=== PATIENT | male | born 1945 | race Two or more races ===

== ENCOUNTER → 2018-03-29 | Outpatient (CLI) | payer MEDICARE ==
[~2018-03-29] MED LIST: OMNIPAQUE 350 MG/ML, 100ML BOTTLE ONE
== END | disposition home or self-care (01) ==
LOC: CFH 14:13
PROVIDERS: ATTEND Surgery
DX: I71.02 Dissection of abdominal aorta (principal); I74.5 Embolism and thrombosis of iliac artery; I77.1 Stricture of artery; J84.10 Pulmonary fibrosis, unspecified; K57.30 Diverticulosis of large intestine without perforation or abscess without bleeding; K40.90 Unilateral inguinal hernia, without obstruction or gangrene, not specified as recurrent
CPT/HCPCS: 71275; 74174; Q9967

== ENCOUNTER → 2018-05-25 | Outpatient (CLI) | payer MEDICARE ==
[~2018-05-25] MED LIST changes: +ATOR-2 PO; +ENAL20TA PO; +METF500T17 PO; -OMNIPAQUE 350 MG/ML, 100ML BOTTLE ONE
[2018-05-25 13:15] LABS: BASOPHILS # (AUTO) 0.03 x10^3/uL (0-0.1); BASOPHILS % (AUTO) 0 % (0-1); EOSINOPHILS # (AUTO) 0.15 x10^3/uL (0-0.4); EOSINOPHILS % (AUTO) 2 % (1-7); LYMPHOCYTES # (AUTO) 1.74 x10^3/uL (1-3.4); LYMPHOCYTES % (AUTO) 23 % (22-44); MD NO; MEAN CORPUSCULAR HEMOGLOBIN 29.7 pg (27.5-34.5); MEAN CORPUSCULAR HGB CONC 33.9 g/dL (33.2-36.2); MEAN CORPUSCULAR VOLUME 87.6 fL (81-97); MEAN PLATELET VOLUME 8.9 fL (7.4-10.4); MONOCYTES # (AUTO) 0.43 x10^3/uL (0.2-0.8); MONOCYTES % (AUTO) 6 % (2-9); NEUTROPHILS # (AUTO) 5.12 x10^3/uL (1.8-6.8); NEUTROPHILS % (AUTO) 69 % (42-75); PLATELET COUNT 209 x10^3/uL (130-400); RED BLOOD COUNT 5.16 x10^6/uL (4.38-5.82); RED CELL DISTRIBUTION WIDTH 13.4 % (9.4-14.8)
[2018-05-25 13:19] LABS: PROTHROMBIN TIME 10.3 Seconds (9.6-11.5)
[2018-05-25 13:23] LABS: ALANINE AMINOTRANSFERASE 37 U/L (12-78); ALBUMIN 3.7 g/dL (3.4-5.0); ANION GAP 5 mmol/L (5-15); CALCIUM 9.1 mg/dL (8.5-10.1); CHLORIDE 105 mmol/L (98-107); CREATININE 1.15 mg/dL (0.7-1.3)
[2018-05-25 13:26] LABS: ALKALINE PHOSPHATASE 65 U/L (45-117); BILIRUBIN,TOTAL 0.7 mg/dL (0.2-1.0); TOTAL PROTEIN 7.7 g/dL (6.4-8.2)
== END | disposition home or self-care (01) ==
LOC: STAR 12:01
PROVIDERS: ATTEND Neurological Surgery
DX: Z01.818 Encounter for other preprocedural examination (principal); M48.061 Spinal stenosis, lumbar region without neurogenic claudication
CPT/HCPCS: 36415; 71046; 80053; 85025; 85610; 85730; 93005

== ENCOUNTER → 2018-05-28 | Outpatient (CLI) | payer MEDICARE ==
[~2018-05-28] MED LIST changes: +CEPH-368 PO; +METH750T87 PO; +OXYC-302 PO
[2018-05-28 10:51] LABS: MICROSCOPIC NOT IND
[2018-05-28 10:52] LABS: CULTURE INDICATED? NO
== END | disposition home or self-care (01) ==
LOC: STAR 10:26
PROVIDERS: ATTEND Neurological Surgery
DX: Z01.818 Encounter for other preprocedural examination (principal); M48.061 Spinal stenosis, lumbar region without neurogenic claudication
CPT/HCPCS: 81003

== ENCOUNTER 2018-05-31 06:40 | Inpatient (IN) | payer MEDICARE ==
[~2018-05-31] VITALS: Ht 172.7 cm; Wt 91.4 kg
[~2018-05-31 06:40] MED LIST changes: +BACITRACIN 50,000 UNIT ONE; +BUPIVACAINE 0.25% ONE; +BUPIVACAINE/PF 0.5% ONE; -CEPH-368 PO; +EPINEPHRINE 1 MG/ML, 1ML ONE; -METH750T87 PO; -OXYC-302 PO
[2018-05-31] MEDS ORDERED: LACTATED RINGERS 1,000 ML IV SCH (07:15)
[2018-05-31] MEDS ORDERED: GABAPENTIN 300 MG CAPSULE PO ONE (07:30)
[2018-05-31] MEDS ORDERED: ONDANSETRON ODT 8 MG PO ONE (07:30)
[2018-05-31] MEDS ORDERED: ACETAMINOPHEN 500 MG TABLET PO ONE (07:30)
[2018-05-31 07:32] VITALS: BP 131/73
[2018-05-31] MEDS ORDERED: FENTANYL PF 100 MCG/2ML ONE ×3 (08:08→10:45)
[2018-05-31] MEDS ORDERED: SUCCINYLCHOLINE 20 MG/ML, 10ML ONE (08:08)
[2018-05-31] MEDS ORDERED: PROPOFOL 10 MG/ML, 20ML ONE (08:08)
[2018-05-31] MEDS ORDERED: MIDAZOLAM 1 MG/ML, 2ML ONE (08:08)
[2018-05-31] MEDS ORDERED: DEXAMETHASONE 4 MG/ML, 1ML ONE ×2 (08:09)
[2018-05-31] MEDS ORDERED: PROPOFOL 50 ML ONE (08:18)
[2018-05-31] MEDS ORDERED: hydrALAzine 20 MG/ML, 1ML IV PRN (09:00)
[2018-05-31] MEDS ORDERED: LABETALOL 5MG/ML, 20ML IV PRN ×2 (09:00→13:30)
[2018-05-31] MEDS ORDERED: EPHEDRINE 50 MG/ML, 1ML IVPush PRN ×2 (09:00→11:30)
[2018-05-31] MEDS ORDERED: METOPROLOL 1 MG/ML, 5ML IV PRN (09:00)
[2018-05-31] MEDS ORDERED: LORazepam 2 MG/ML, 1ML IVPush PRN (09:00)
[2018-05-31] MEDS ORDERED: FENTANYL PF 100 MCG/2ML IV PRN (09:00)
[2018-05-31] MEDS ORDERED: HYDROmorphone 1 MG/ML, 1ML IV PRN (09:00)
[2018-05-31] MEDS ORDERED: ALBUTEROL/IPRATROPIUM 2.5MG/0.5MG, 3 ML NPPB PRN (09:00)
[2018-05-31] MEDS ORDERED: MORPHINE SULFATE 4 MG/ML, 1ML IVPush PRN (09:00)
[2018-05-31] MEDS ORDERED: PROCHLORPERAZINE 5 MG/ML, 2ML IV PRN (09:00)
[2018-05-31] MEDS ORDERED: OXYcodone 5 MG/5 ML ORAL.SOL UDC PO PRN (09:00)
[2018-05-31] MEDS ORDERED: MEPERIDINE/PF 25MG/0.5ML IVPush PRN (09:00)
[2018-05-31] MEDS ORDERED: MIDAZOLAM 1 MG/ML, 2ML IV PRN (09:00)
[2018-05-31] MEDS ORDERED: EPHEDRINE 50 MG/ML, 1ML ONE ×2 (09:49→11:25)
[2018-05-31] MEDS ORDERED: PHENYLEPHRINE 10 MG/ML ONE (09:49)
[2018-05-31] MEDS ORDERED: ROCURONIUM 10 MG/ML,10ML ONE (09:49)
[2018-05-31] MEDS ORDERED: CEFAZOLIN 1,000 MG ONE (09:49)
[2018-05-31] MEDS ORDERED: BUPIVACAINE/PF 0.25% EPIDPUSH ONE (10:50)
[2018-05-31] MEDS ORDERED: FENTANYL PF 100 MCG/2ML EPIDPUSH ONE (10:51)
[2018-05-31] MEDS ORDERED: OXYcodone 5 MG/5 ML ORAL.SOL UDC ONE (12:01)
[2018-05-31] MEDS ORDERED: HYDROcodone/APAP 10/325 MG TABLET PO PRN (13:30)
[2018-05-31] MEDS ORDERED: MAGNESIUM HYDROXIDE 8%, 30ML UDC PO PRN (13:30)
[2018-05-31] MEDS ORDERED: CEPHALEXIN 500 MG CAPSULE PO PRN (13:30)
[2018-05-31] MEDS ORDERED: ONDANSETRON 2MG/ML, 2ML IV PRN (13:30)
[2018-05-31] MEDS ORDERED: METHOCARBAMOL 750 MG TABLET PO PRN (13:30)
[2018-05-31] MEDS ORDERED: PROMETHAZINE 25 MG/ML, 1ML IM PRN (13:30)
[2018-05-31] MEDS ORDERED: morphine SULFATE 10 MG/ML, 1ML IV PRN (13:30)
[2018-05-31] MEDS ORDERED: DIPHENHYDRAMINE 50 MG CAPSULE PO PRN (13:30)
[2018-05-31] MEDS ORDERED: BISACODYL 10 MG SUPP PR PRN (13:30)
[2018-05-31] MEDS: NS + 20MEQ KCL 1,000 ML IV SCH (14:06)
[2018-05-31 14:07] VITALS: BP 125/60
[2018-05-31] MEDS: CEFAZOLIN PMX 1GM/50ML 50 ML IVPB SCH ×2 (15:51→23:41)
[2018-05-31] MEDS: INSULIN REGULAR 100 UNITS/ML, 3ML VIAL SQ-INSULIN SCH ×2 (16:00→20:52)
[2018-05-31] MEDS: metFORMIN 500 MG TABLET PO SCH (16:56)
[2018-05-31 18:44] VITALS: BP 114/60
[2018-05-31] MEDS: ENALAPRIL 20MG TABLET PO SCH (20:51)
[2018-05-31] MEDS: ATORVASTATIN 80 MG TABLET PO SCH (20:52)
[2018-05-31] MEDS ORDERED: ZOLPIDEM 5MG TABLET PO PRN (21:00)
[2018-05-31] MEDS: OXYcodone/APAP 5/325MG TABLET PO PRN (22:19)
[2018-06-01] MEDS: NS + 20MEQ KCL 1,000 ML IV SCH ×3 (02:00→22:31)
[2018-06-01] MEDS: OXYcodone/APAP 5/325MG TABLET PO PRN ×4 (02:58→20:37)
[2018-06-01 03:13] VITALS: BP 108/62
[2018-06-01] MEDS: INSULIN REGULAR 100 UNITS/ML, 3ML VIAL SQ-INSULIN SCH ×4 (07:00→20:26)
[2018-06-01 07:33] VITALS: BP 114/63
[2018-06-01] MEDS: metFORMIN 500 MG TABLET PO SCH ×2 (08:07→16:42)
[2018-06-01] MEDS: ENALAPRIL 20MG TABLET PO SCH ×3 (08:07→20:34)
[2018-06-01] MEDS: SENNA/DOCUSATE TABLET PO SCH ×2 (08:07→08:40)
[2018-06-01] MEDS: CEFAZOLIN PMX 1GM/50ML 50 ML IVPB SCH ×2 (08:39→16:43)
[2018-06-01 12:21] VITALS: BP 116/61
[2018-06-01 20:29] VITALS: BP 115/59
[2018-06-01] MEDS: ATORVASTATIN 80 MG TABLET PO SCH (20:34)
[2018-06-02 00:35] VITALS: BP 104/56
[2018-06-02] MEDS: CEFAZOLIN PMX 1GM/50ML 50 ML IVPB SCH (00:41)
[2018-06-02] MEDS: OXYcodone/APAP 5/325MG TABLET PO PRN ×2 (04:51→10:40)
[2018-06-02] MEDS: INSULIN REGULAR 100 UNITS/ML, 3ML VIAL SQ-INSULIN SCH (07:00)
[2018-06-02 08:17] VITALS: BP 105/63
[2018-06-02] MEDS: SENNA/DOCUSATE TABLET PO SCH (08:23)
[2018-06-02] MEDS: metFORMIN 500 MG TABLET PO SCH (08:23)
[2018-06-02] MEDS: ENALAPRIL 20MG TABLET PO SCH (09:00)
[2018-06-02] MEDS ORDERED: METH750T87 PO (10:17)
[2018-06-02] MEDS ORDERED: OXYC-302 PO (10:17)
[2018-06-02] MEDS ORDERED: CEPH-368 PO (10:18)
[2018-06-02] MEDS ORDERED: CEPHALEXIN 500 MG CAPSULE PO SCH (11:00)
== END 2018-06-02 11:17 | disposition home or self-care (01) | DRG 516 ==
LOC: OUT 06:40 → 4NOR 12:39 → OUT 12:43
PROVIDERS: ADMIT Neurological Surgery; ATTEND Neurological Surgery
PROC: 4A11X4G Monitoring of Peripheral Nervous Electrical Activity, Intraoperative, External Approach (ICD-10-PCS; 2018-05-31)
PROC: 01NB0ZZ Release Lumbar Nerve, Open Approach (ICD-10-PCS; principal; 2018-05-31 09:30)
DX: M48.062 Spinal stenosis, lumbar region with neurogenic claudication (principal); G95.20 Unspecified cord compression; M54.16 Radiculopathy, lumbar region; I10 Essential (primary) hypertension; I71.9 Aortic aneurysm of unspecified site, without rupture; G89.29 Other chronic pain; Z79.2 Long term (current) use of antibiotics; Z79.899 Other long term (current) drug therapy
CPT/HCPCS: 72100; 82962; G0378; J0171; J0690; J1100; J2250; J2704; J3010; J3480; J3490; Q0162; J0330; J2370; J7120

== ENCOUNTER 2019-09-11 11:07 | Day surgery (SDC) | payer MEDICARE ==
[2019-09-10 11:39] LABS: BASOPHILS # (AUTO) 0.03 x10^3/uL (0-0.1); BASOPHILS % (AUTO) 1 % (0-1); EOSINOPHILS # (AUTO) 0.21 x10^3/uL (0-0.4); EOSINOPHILS % (AUTO) 3 % (1-7); LYMPHOCYTES # (AUTO) 1.92 x10^3/uL (1-3.4); LYMPHOCYTES % (AUTO) 29 % (22-44); MD NO; MEAN CORPUSCULAR HEMOGLOBIN 29.2 pg (27.5-34.5); MEAN CORPUSCULAR HGB CONC 33.4 g/dL (33.2-36.2); MEAN CORPUSCULAR VOLUME 87.5 fL (81-97); MEAN PLATELET VOLUME 8.8 fL (7.4-10.4); MONOCYTES # (AUTO) 0.47 x10^3/uL (0.2-0.8); MONOCYTES % (AUTO) 7 % (2-9); NEUTROPHILS # (AUTO) 4.05 x10^3/uL (1.8-6.8); NEUTROPHILS % (AUTO) 61 % (42-75); PLATELET COUNT 204 x10^3/uL (130-400); RED BLOOD COUNT 5.07 x10^6/uL (4.38-5.82); RED CELL DISTRIBUTION WIDTH 13.3 % (9.4-14.8)
[2019-09-10 11:45] LABS: MICROSCOPIC NOT IND
[2019-09-10 11:46] LABS: ALANINE AMINOTRANSFERASE 28 U/L (12-78); ALBUMIN 3.8 g/dL (3.4-5.0); ANION GAP 8 mmol/L (5-15); CHLORIDE 108 mmol/L (98-107)
[2019-09-10 11:48] LABS: ALKALINE PHOSPHATASE 58 U/L (45-117); BILIRUBIN,TOTAL 0.6 mg/dL (0.2-1.0); TOTAL PROTEIN 7.1 g/dL (6.4-8.2)
[~2019-09-11] VITALS: Ht 172.7 cm; Wt 87.0 kg
[~2019-09-11 11:07] MED LIST changes: -BACITRACIN 50,000 UNIT ONE; -BUPIVACAINE 0.25% ONE; -BUPIVACAINE/PF 0.5% ONE; +CEPH-368 PO; -EPINEPHRINE 1 MG/ML, 1ML ONE; +METH750T87 PO; +OXYC-302 PO
[2019-09-11] MEDS ORDERED: FENTANYL PF 250 MCG/5ML ONE (11:42)
[2019-09-11] MEDS ORDERED: MIDAZOLAM 1 MG/ML, 2ML ONE (11:42)
[2019-09-11 11:47] VITALS: BP 163/78
[2019-09-11] MEDS ORDERED: LACTATED RINGERS 1,000 ML IV SCH (11:51)
[2019-09-11] MEDS ORDERED: LIDOCAINE 1%, 20ML ONE (11:57)
[2019-09-11] MEDS ORDERED: BUPIVACAINE/PF 0.5% ONE (11:57)
[2019-09-11] MEDS ORDERED: ACETAMINOPHEN 500 MG TABLET PO ONE (12:00)
[2019-09-11] MEDS ORDERED: GABAPENTIN 300 MG CAPSULE PO ONE (12:00)
[2019-09-11] MEDS ORDERED: FAMOTIDINE 20 MG TABLET PO ONE (12:00)
[2019-09-11] MEDS ORDERED: CEFAZOLIN 1,000 MG ONE ×2 (12:03→12:12)
[2019-09-11] MEDS ORDERED: DEXAMETHASONE 4 MG/ML, 1ML ONE (12:11)
[2019-09-11] MEDS ORDERED: PROPOFOL 10 MG/ML, 20ML ONE (12:14)
[2019-09-11] MEDS ORDERED: OXYcodone 5 MG/5 ML ORAL.SOL UDC PO PRN (12:30)
[2019-09-11] MEDS ORDERED: PROMETHAZINE 25 MG/ML, 1ML IV PRN (12:30)
[2019-09-11] MEDS ORDERED: ONDANSETRON 2MG/ML, 2ML IV PRN (12:30)
[2019-09-11] MEDS ORDERED: LABETALOL 5MG/ML, 20ML IV PRN (12:30)
[2019-09-11] MEDS ORDERED: HYDROmorphone 1 MG/ML, 1ML INJ IVPush PRN (12:30)
[2019-09-11] MEDS ORDERED: FENTANYL PF 100 MCG/2ML IV PRN (12:30)
[2019-09-11] MEDS ORDERED: hydrALAzine 20 MG/ML, 1ML IV PRN (12:30)
[2019-09-11] MEDS ORDERED: BUPIVACAINE/PF-EPI 0.25% 1:200K INFIL ONE (12:44)
[2019-09-11] MEDS ORDERED: LIDOCAINE 1%, 20ML INFIL ONE (12:45)
[2019-09-11] MEDS ORDERED: ONDANSETRON 2MG/ML, 2ML ONE (12:52)
[2019-09-11] MEDS ORDERED: metFORMIN 500 MG TABLET PO SCH (21:00)
[2019-09-11] MEDS ORDERED: ATORVASTATIN 80 MG TABLET PO SCH (21:00)
[2019-09-11] MEDS ORDERED: ENALAPRIL 20MG TABLET PO SCH (21:00)
== END 2019-09-11 16:30 | disposition home or self-care (01) ==
LOC: OUT 11:07
PROVIDERS: ATTEND Urology
DX: N43.3 Hydrocele, unspecified (principal); I10 Essential (primary) hypertension; E11.9 Type 2 diabetes mellitus without complications; Z79.84 Long term (current) use of oral hypoglycemic drugs; Z79.899 Other long term (current) drug therapy
CPT/HCPCS: 36415; 55041; 80053; 81003; 82962; 85025; 93005; J0690; J1100; J2250; J2405; J2704; J3010; J7120

== ENCOUNTER → 2020-03-26 | Outpatient (CLI) | payer MEDICARE ==
[~2020-03-26] MED LIST changes: +CINN500C2 PO; +turmeric PO
[2020-03-26 11:10] LABS: BASOPHILS # (AUTO) 0.03 x10^3/uL (0-0.1); BASOPHILS % (AUTO) 0 % (0-1); EOSINOPHILS # (AUTO) 0.22 x10^3/uL (0-0.4); EOSINOPHILS % (AUTO) 3 % (1-7); LYMPHOCYTES # (AUTO) 1.91 x10^3/uL (1-3.4); LYMPHOCYTES % (AUTO) 27 % (22-44); MD NO; MEAN CORPUSCULAR HEMOGLOBIN 28.9 pg (27.5-34.5); MEAN CORPUSCULAR HGB CONC 32.7 g/dL (33.2-36.2); MEAN CORPUSCULAR VOLUME 88.3 fL (81-97); MEAN PLATELET VOLUME 8.8 fL (7.4-10.4); MONOCYTES # (AUTO) 0.52 x10^3/uL (0.2-0.8); MONOCYTES % (AUTO) 7 % (2-9); NEUTROPHILS # (AUTO) 4.43 x10^3/uL (1.8-6.8); NEUTROPHILS % (AUTO) 62 % (42-75); PLATELET COUNT 195 x10^3/uL (130-400); RED BLOOD COUNT 5.15 x10^6/uL (4.38-5.82)
[2020-03-26 11:23] LABS: ALBUMIN 3.6 g/dL (3.4-5.0); ANION GAP 6 mmol/L (5-15); CALCIUM 8.7 mg/dL (8.5-10.1); CHLORIDE 108 mmol/L (98-107)
[2020-03-26 11:27] LABS: MICROSCOPIC NOT IND
[2020-03-26 11:28] LABS: ALANINE AMINOTRANSFERASE 31 U/L (12-78); ALKALINE PHOSPHATASE 56 U/L (45-117); BILIRUBIN,TOTAL 0.6 mg/dL (0.2-1.0); CREATININE 1.03 mg/dL (0.7-1.3)
== END | disposition home or self-care (01) ==
LOC: STAR 09:46
PROVIDERS: ATTEND Orthopaedic Surgery
DX: Z01.818 Encounter for other preprocedural examination (principal); Z20.828 Contact with and (suspected) exposure to other viral communicable diseases; M17.11 Unilateral primary osteoarthritis, right knee
CPT/HCPCS: 36415; 80053; 81003; 85025; 87081; 87635; 87806; 93005; G0475

== ENCOUNTER 2020-03-30 06:07 | Observation (INO) | payer MEDICARE ==
[~2020-03-30] VITALS: Ht 170.2 cm; Wt 92.7 kg
[~2020-03-30 06:07] MED LIST changes: -ENAL20TA PO; +ENAL20TA9 PO
[2020-03-30] MEDS ORDERED: CHLORHEXIDINE 15 ML UDC MM STA (06:18)
[2020-03-30] MEDS ORDERED: LACTATED RINGERS 1,000 ML IV SCH (06:19)
[2020-03-30] MEDS ORDERED: VANCOMYCIN PMX 1GM/200ML 200 ML IV ONE (06:30)
[2020-03-30] MEDS ORDERED: FENTANYL PF 250 MCG/5ML ONE ×2 (06:36→08:10)
[2020-03-30] MEDS ORDERED: morphine SULFATE/PF 1 MG/ML, 10ML ONE (06:42)
[2020-03-30] MEDS ORDERED: ROPIvacaine/PF 0.2%, 20 ML ONE ×2 (06:42→07:01)
[2020-03-30] MEDS ORDERED: SODIUM CHLORIDE 0.9% 50 ML ONE (06:42)
[2020-03-30] MEDS ORDERED: TRANEXAMIC ACID 100 MG/ML, 10ML ONE (06:42)
[2020-03-30] MEDS ORDERED: KETOROLAC 60 MG/2 ML ONE (06:42)
[2020-03-30] MEDS ORDERED: EPINEPHRINE 1 MG/ML, 1ML ONE (06:43)
[2020-03-30] MEDS ORDERED: PHENYLEPHRINE 10 MG/ML ONE (06:59)
[2020-03-30] MEDS ORDERED: MEPERIDINE/PF 25MG/0.5ML IVPush PRN (07:00)
[2020-03-30] MEDS ORDERED: OXYcodone 5 MG/5 ML ORAL.SOL UDC PO PRN (07:00)
[2020-03-30] MEDS ORDERED: ONDANSETRON 2MG/ML, 2ML IVPush PRN ×2 (07:00→08:00)
[2020-03-30] MEDS ORDERED: morphine SULFATE 10 MG/ML, 1ML IVPush PRN ×2 (07:00→08:00)
[2020-03-30] MEDS ORDERED: LABETALOL 5MG/ML, 20ML IV PRN (07:00)
[2020-03-30] MEDS ORDERED: hydrALAzine 20 MG/ML, 1ML IV PRN (07:00)
[2020-03-30] MEDS ORDERED: HYDROmorphone 1 MG/ML, 1ML INJ IVPush PRN (07:00)
[2020-03-30] MEDS ORDERED: ACETAMINOPHEN 325 MG TABLET PO PRN ×2 (07:00→08:00)
[2020-03-30] MEDS ORDERED: DIPHENHYDRAMINE 50 MG CAPSULE PO PRN (08:00)
[2020-03-30] MEDS ORDERED: ZOLPIDEM 5MG TABLET PO PRN (08:00)
[2020-03-30] MEDS ORDERED: VANCOMYCIN PMX 1GM/200ML 200 ML IVPB ONE (08:00)
[2020-03-30] MEDS ORDERED: LORazepam 2 MG/ML, 1ML IVPush PRN (08:00)
[2020-03-30] MEDS ORDERED: ROCURONIUM 10MG/ML,5ML ONE (08:10)
[2020-03-30] MEDS ORDERED: CEFAZOLIN 1,000 MG ONE (08:10)
[2020-03-30] MEDS ORDERED: NEOSTIGMINE 1 MG/ML, 10ML ONE (08:10)
[2020-03-30] MEDS ORDERED: GLYCOPYRROLATE 0.2MG/1ML, 5ML ONE (08:10)
[2020-03-30] MEDS ORDERED: PROPOFOL 10 MG/ML, 20ML ONE (08:10)
[2020-03-30] MEDS ORDERED: FENTANYL PF 100 MCG/2ML ONE ×2 (09:41→10:06)
[2020-03-30] MEDS: FENTANYL PF 100 MCG/2ML IV PRN ×3 (09:43→10:09)
[2020-03-30] MEDS ORDERED: ACETAMINOPHEN 650 MG/20.3 ML UDC ONE (09:55)
[2020-03-30] MEDS ORDERED: OXYcodone 5 MG/5 ML ORAL.SOL UDC ONE (09:56)
[2020-03-30] MEDS ORDERED: TRANEXAMIC ACID 1,000 MG in SODIUM CHLORIDE 0.9% 100 ML IV ONE (11:00)
[2020-03-30] MEDS ORDERED: CEFAZOLIN PMX 2GM/50ML 50 ML IVPB SCH (11:30)
[2020-03-30 12:58] VITALS: BP 125/63
[2020-03-30] MEDS: OXYcodone/APAP 7.5/325MG TABLET PO PRN ×3 (15:23→23:19)
[2020-03-30] MEDS: CEFAZOLIN PMX 2GM/50ML 50 ML IVPB SCH ×2 (15:23→23:19)
[2020-03-30] MEDS: metFORMIN 500 MG TABLET PO SCH (17:38)
[2020-03-30] MEDS: D5%-0.45% NACL 1,000 ML IV SCH (19:28)
[2020-03-30] MEDS: ENALAPRIL 20MG TABLET PO SCH (19:28)
[2020-03-30 19:38] VITALS: BP 108/59
[2020-03-30] MEDS ORDERED: ATORVASTATIN 80 MG TABLET PO SCH (21:00)
[2020-03-30 23:21] VITALS: BP 150/71
[2020-03-31] MEDS: D5%-0.45% NACL 1,000 ML IV SCH ×3 (02:00→12:00)
[2020-03-31 03:10] VITALS: BP 119/55
[2020-03-31] MEDS: OXYcodone/APAP 7.5/325MG TABLET PO PRN ×2 (04:48→12:52)
[2020-03-31 07:14] VITALS: BP 128/63
[2020-03-31] MEDS: CEFAZOLIN PMX 2GM/50ML 50 ML IVPB SCH (07:28)
[2020-03-31] MEDS ORDERED: ASPIRIN 325 MG TABLET EC PO SCH (08:00)
[2020-03-31] MEDS ORDERED: VANCOMYCIN PMX 1GM/200ML 200 ML IV ONE (08:00)
[2020-03-31] MEDS: metFORMIN 500 MG TABLET PO SCH (08:57)
[2020-03-31] MEDS ORDERED: DOCUSATE 100 MG CAPSULE PO SCH (09:00)
[2020-03-31] MEDS: ENALAPRIL 20MG TABLET PO SCH (09:07)
[2020-03-31 12:48] VITALS: BP 164/71
[2020-03-31] MEDS ORDERED: HYDR-3653 PO (14:41)
== END 2020-03-31 14:51 | disposition home or self-care (01) ==
LOC: OUT 06:07 → 4NE 10:33 → OUT 10:43 → DCLOUNGE 03-31 14:45
PROVIDERS: ADMIT Orthopaedic Surgery; ATTEND Orthopaedic Surgery
DX: M17.11 Unilateral primary osteoarthritis, right knee (principal); E11.9 Type 2 diabetes mellitus without complications; I10 Essential (primary) hypertension; E78.5 Hyperlipidemia, unspecified; Z87.891 Personal history of nicotine dependence; Z79.899 Other long term (current) drug therapy
CPT/HCPCS: 27447; 36415; 73564; 82962; 85018; 96365; 96366; 96367; 97110; 97161; 97165; C1713; C1776; G0378; J0171; J0690; J1885; J2274; J2370; J2704; J2710; J2795; J3010; J3370; J7120

== ENCOUNTER 2020-09-04 08:16 | Observation (INO) | payer MEDICARE ==
[2020-09-01 15:36] LABS: MICROSCOPIC NOT IND
[2020-09-01 15:41] LABS: BASOPHILS % (AUTO) 1 % (0-1); EOSINOPHILS % (AUTO) 2 % (1-7); LYMPHOCYTES % (AUTO) 26 % (22-44); MEAN CORPUSCULAR HEMOGLOBIN 27.6 pg (27.5-34.5); MEAN CORPUSCULAR HGB CONC 33.3 g/dL (33.2-36.2); MEAN PLATELET VOLUME 8.3 fL (7.4-10.4); MONOCYTES % (AUTO) 6 % (2-9); NEUTROPHILS % (AUTO) 65 % (42-75); PLATELET COUNT 266 x10^3/uL (130-400); RED BLOOD COUNT 5.07 x10^6/uL (4.38-5.82); RED CELL DISTRIBUTION WIDTH 15.2 % (9.4-14.8)
[2020-09-01 15:43] LABS: MD NO
[2020-09-01 15:52] LABS: ALBUMIN 3.8 g/dL (3.4-5.0); ANION GAP 7 mmol/L (5-15); CALCIUM 9.1 mg/dL (8.5-10.1); CHLORIDE 106 mmol/L (98-107)
[2020-09-01 16:00] LABS: ALANINE AMINOTRANSFERASE 38 U/L (12-78); ALKALINE PHOSPHATASE 71 U/L (45-117); BILIRUBIN,TOTAL 0.5 mg/dL (0.2-1.0); CREATININE 1.08 mg/dL (0.7-1.3); TOTAL PROTEIN 7.4 g/dL (6.4-8.2)
[~2020-09-04] VITALS: Ht 170.2 cm; Wt 107.3 kg
[~2020-09-04 08:16] MED LIST changes: +EPINEPHRINE 1 MG/ML, 1ML ONE; +HYDR-3653 PO; +KETOROLAC 60 MG/2 ML ONE; +MAGN100T6 PO; -OXYC-302 PO; +OXYC1TAB14 PO; +ROPIvacaine/PF 0.2%, 20 ML ONE; +SODIUM CHLORIDE 0.9% 50 ML ONE; +TRANEXAMIC ACID 100 MG/ML, 10ML ONE; +morphine SULFATE/PF 1 MG/ML, 10ML ONE
[2020-09-04] MEDS ORDERED: CHLORHEXIDINE 15 ML UDC MM STA (08:25)
[2020-09-04] MEDS ORDERED: VANCOMYCIN PMX 1GM/200ML 200 ML IV STA (08:29)
[2020-09-04] MEDS ORDERED: LACTATED RINGERS 1,000 ML IV SCH (08:30)
[2020-09-04] MEDS ORDERED: FENTANYL PF 250 MCG/5ML ONE (09:56)
[2020-09-04] MEDS ORDERED: MIDAZOLAM 1 MG/ML, 2ML ONE (09:56)
[2020-09-04] MEDS ORDERED: ONDANSETRON 2MG/ML, 2ML ONE (09:59)
[2020-09-04] MEDS ORDERED: DEXAMETHASONE 4 MG/ML, 1ML ONE (09:59)
[2020-09-04] MEDS ORDERED: ACETAMINOPHEN 325 MG TABLET PO PRN ×2 (10:00→12:00)
[2020-09-04] MEDS ORDERED: ZOLPIDEM 5MG TABLET PO PRN (10:00)
[2020-09-04] MEDS ORDERED: LORazepam 2 MG/ML, 1ML IVPush PRN (10:00)
[2020-09-04] MEDS ORDERED: TRANEXAMIC ACID 1,000 MG in SODIUM CHLORIDE 0.9% 100 ML IV ONE ×2 (10:00→13:00)
[2020-09-04] MEDS ORDERED: ONDANSETRON 2MG/ML, 2ML IVPush PRN ×2 (10:00→12:00)
[2020-09-04] MEDS ORDERED: morphine SULFATE 10 MG/ML, 1ML IVPush PRN (10:00)
[2020-09-04] MEDS ORDERED: DIPHENHYDRAMINE 50 MG CAPSULE PO PRN (10:00)
[2020-09-04] MEDS ORDERED: VANCOMYCIN PMX 1GM/200ML 200 ML IVPB ONE (10:00)
[2020-09-04] MEDS ORDERED: PROPOFOL 10 MG/ML, 20ML ONE (10:27)
[2020-09-04] MEDS ORDERED: SUCCINYLCHOLINE 20 MG/ML, 10ML ONE (10:27)
[2020-09-04] MEDS ORDERED: ROCURONIUM 10MG/ML,5ML ONE (10:27)
[2020-09-04] MEDS ORDERED: OXYcodone 5 MG/5 ML ORAL.SOL UDC PO PRN (12:00)
[2020-09-04] MEDS ORDERED: PROMETHAZINE 12.5 MG SUPP PR PRN (12:00)
[2020-09-04] MEDS ORDERED: FENTANYL PF 100 MCG/2ML ONE ×2 (12:00→12:34)
[2020-09-04] MEDS ORDERED: ALBUTEROL SULFATE 2.5 MG/3 ML NPPB PRN (12:00)
[2020-09-04] MEDS ORDERED: hydrALAzine 20 MG/ML, 1ML IV PRN (12:00)
[2020-09-04] MEDS ORDERED: EPHEDRINE 50 MG/ML, 1ML IVPush PRN (12:00)
[2020-09-04] MEDS ORDERED: DIPHENHYDRAMINE 50 MG/ML, 1ML IVPush PRN (12:00)
[2020-09-04] MEDS ORDERED: MIDAZOLAM 1 MG/ML, 2ML IV PRN (12:00)
[2020-09-04] MEDS ORDERED: LABETALOL 5MG/ML, 20ML IV PRN (12:00)
[2020-09-04] MEDS ORDERED: DIAZEPAM 5 MG/ML, 2ML IVPush PRN (12:00)
[2020-09-04] MEDS ORDERED: MEPERIDINE/PF 25MG/0.5ML IVPush PRN (12:00)
[2020-09-04] MEDS ORDERED: PROMETHAZINE 25 MG/ML, 1ML IVPush PRN (12:00)
[2020-09-04] MEDS ORDERED: OXYcodone 5 MG/5 ML ORAL.SOL UDC ONE (12:01)
[2020-09-04] MEDS: FENTANYL PF 100 MCG/2ML IV PRN ×2 (12:06→12:13)
[2020-09-04] MEDS ORDERED: HYDROmorphone 1 MG/ML, 1ML INJ ONE (12:29)
[2020-09-04] MEDS: HYDROmorphone 1 MG/ML, 1ML INJ IVPush PRN ×2 (12:32→12:39)
[2020-09-04] MEDS ORDERED: LABETALOL 5MG/ML, 20ML ONE (13:06)
[2020-09-04] MEDS: D5%-0.45% NACL 1,000 ML IV SCH ×2 (15:00→15:21)
[2020-09-04] MEDS: metFORMIN 500 MG TABLET PO SCH (17:14)
[2020-09-04] MEDS: CEFAZOLIN PMX 2GM/50ML 50 ML IVPB SCH (17:14)
[2020-09-04 20:22] VITALS: BP 151/69
[2020-09-04] MEDS: OXYcodone/APAP 7.5/325MG TABLET PO PRN (20:56)
[2020-09-04] MEDS: ENALAPRIL 20MG TABLET PO SCH (20:56)
[2020-09-04] MEDS ORDERED: ATORVASTATIN 80 MG TABLET PO SCH (21:00)
[2020-09-05 00:03] VITALS: BP 120/71
[2020-09-05] MEDS: OXYcodone/APAP 7.5/325MG TABLET PO PRN ×4 (00:58→13:39)
[2020-09-05] MEDS: CEFAZOLIN PMX 2GM/50ML 50 ML IVPB SCH ×2 (00:58→09:38)
[2020-09-05 06:51] VITALS: BP 108/60
[2020-09-05] MEDS ORDERED: MAGNESIUM CHLORIDE 64 MG TABLET.DR PO SCH (09:00)
[2020-09-05] MEDS: metFORMIN 500 MG TABLET PO SCH ×2 (09:08→13:39)
[2020-09-05] MEDS: ENALAPRIL 20MG TABLET PO SCH (09:08)
[2020-09-05] MEDS: D5%-0.45% NACL 1,000 ML IV SCH ×2 (09:11→13:00)
[2020-09-05 13:43] VITALS: BP 145/66
[2020-09-05] MEDS ORDERED: ASPIRIN 325 MG TABLET EC PO SCH (17:00)
[2020-09-05] MEDS ORDERED: DOCUSATE 100 MG CAPSULE PO SCH (21:00)
== END 2020-09-05 14:15 | disposition home or self-care (01) ==
LOC: OUT 08:16 → 4NE 14:06 → ORIP 14:26 → OUT 15:24 → 4NE 16:26 → DCLOUNGE 09-05 14:02
PROVIDERS: ADMIT Orthopaedic Surgery; ATTEND Orthopaedic Surgery
DX: M17.12 Unilateral primary osteoarthritis, left knee (principal); Z20.822 Contact with and (suspected) exposure to COVID-19; E11.9 Type 2 diabetes mellitus without complications; I10 Essential (primary) hypertension; Z79.899 Other long term (current) drug therapy; Z87.891 Personal history of nicotine dependence
CPT/HCPCS: 27447; 36415; 73564; 80053; 81003; 82962; 85025; 87081; 87806; 93005; 96361; 96365; 96366; 97110; 97161; C1713; C1776; G0378; J0171; J0330; J0690; J1100; J1170; J1885; J2250; J2274; J2405; J2704; J2795; J3010; J3370; J7120; U0003; G0475